=== PATIENT | female | born 1930 | race Hispanic/Latino ===

== ENCOUNTER 2017-03-04 11:23 | Emergency (ER) | payer MEDICARE ==
[2017-03-04 11:35] VITALS: BMI 29.2
[2017-03-04 11:50] VITALS: TEMP 97.6
[2017-03-04] MEDS ORDERED: Oxycodone/Acetaminophen 2.5/325 mg Tab PO STA (11:57)
--- NOTE | 2017-03-04 12:01 | ED PDOC ---
Arrival/HPI - General Chief Complaint: Lower Extremity Problem/Injury Time Seen by Provider: 03/04/17 11:30 Historian: Patient, Family, Caregiver EM Caveat: Dementia - History of Present Illness Narrative History of Present Illness (Text): 86 y/o female bed/wheelchair bound w/ pmhx of cva on aggrnox, htn, dm, hld, dementia presents bibems s/p accidental twist mechanism while transferring her from wheelchair to bed , now c/o mild acute on chronic right sided knee swelling and pain. Patient and [employer] MA[employer] at bedside denies any falls/syncopal events/ concomitant bodily traumatic injury/recent symptoms of infective foci/ denying ams/fevers/[id number]/cough/dysuria/cough or any other complaints at this time. PMD: Dr. Pawan Antunez Time/Duration: 24 hours Symptom Onset: Sudden Symptom Course: Unchanged Quality: Aching Severity Level: 6 Activities at Onset: Light Past Medical History - Provider Review Nursing Documentation Reviewed: Yes - Travel History Have you recently traveled outside [place] w/in the past 3 mons?: No - Past History Past History: Non-Contributing - Infectious Disease Hx of Infectious Diseases: None - Cardiac Hx Hypertension: Yes - Neurological Hx Dementia: Yes - Endocrine/Metabolic Hx Diabetes Mellitus Type 2: Yes - Musculoskeletal/Rheumatological Hx Arthritis: Yes - Psychiatric Hx Substance Use: No - Anesthesia Hx Anesthesia: No Family/Social History - Physician Review Nursing Documentation Reviewed: Yes Family/Social History: No Known Family HX Smoking Status: Never Smoked Hx Alcohol Use: Yes Frequency of alcohol use: Socially Hx Substance Use: No Allergies/Home Meds Allergies/Adverse Reactions: Allergies No Known Allergies Allergy (Verified 03/04/17 11:35) Review of Systems - Physician Review All systems were reviewed & negative as marked: Yes - Review of Systems Constitutional: Normal Eyes: Normal ENT: Normal Respiratory: Normal Cardiovascular: Normal Gastrointestinal: Normal Genitourinary Female: Normal Musculoskeletal: Other (aforementioned ) Skin: Normal Neurological: Normal Endocrine: Normal Hemo/Lymphatic: Normal Psychiatric: Normal Physical Exam Vital Signs Reviewed: Yes Vital Signs Temp Pulse Resp BP Pulse Ox 03/04/17 13:41 94 H 18 145/65 94 L 03/04/17 11:48 97.6 F 100 H 16 148/69 93 L Temperature: Afebrile Blood Pressure: Normal Pulse: Regular Respiratory Rate: Normal Appearance: Positive for: Well-Appearing, Non-Toxic, Comfortable Pain Distress: None Mental Status: Positive for: other (aox 2 to person and "hospital " ) - Systems Exam Head: Present: Atraumatic, Normocephalic Pupils: Present: PERRL Extroacular Muscles: Present: EOMI Conjunctiva: Present: Normal Mouth: Present: Moist Mucous Membranes Neck: Present: Normal Range of Motion Respiratory/Chest: Present: Clear to Auscultation, Good Air Exchange. No: Respiratory Distress, Accessory Muscle Use Cardiovascular: Present: Regular Rate and Rhythm, Normal S1, S2. No: Murmurs Abdomen: Present: Normal Bowel Sounds. No: Tenderness, Distention, Peritoneal Signs Back: Present: Normal Inspection Upper Extremity: Present: Normal Inspection. No: Cyanosis, Edema Lower Extremity: Present: Other (b/l knee crepitus on rom, + medial joint line ttp over rt knee, no relative ligamentous laxity (no varus/valgus/ant/post drawer sign (-) ). No: Edema Neurological: Present: GCS=15, CN II-XII Intact, Speech Normal Skin: Present: Warm, Dry, Normal Color. No: Rashes Psychiatric: Present: Alert, Oriented x 3, Normal Insight, Normal Concentration Medical Decision Making ED Course and Treatment: 03/04/17 12:05 Impression: An 86 year old female with chronic right knee pain and swelling. Differential Diagnosis included but are not limited to: right knee pain r/o fracture, dislocation Plan: -- Radiology right knee -- Percocet -- Reassess and disposition Progress Notes: Awaiting knee xray , pt more comfortable s/p rx admin. 03/04/17 14:44 Right Knee Radiographs Creator : Luis Enriquez MD FINDINGS: BONES: Normal. No fracture. JOINTS: There is joint space narrowing in the medial and lateral compartments JOINT EFFUSION: None. IMPRESSION: No acute findings. 03/04/17 15:07 Official read by radiologist is awaited. Pt pain controlled. Bulky napoles wrap was placed on knee. R.I.C.E. Treatment/pmd f/u +/- TO BE ADVISED. 03/04/17 15:08 Re-evaluation Time: 15:00 Reassessment Condition: Re-examined - RAD Interpretation Radiology Orders: 03/04/17 11:54 KNEE RIGHT 2 VIEWS (AP & LAT) [RAD] Stat - Medication Orders Current Medication Orders: Discontinued Medications Oxycodone/Acetaminophen (Percocet 2.5/325 Mg Tab) 1 tab PO STAT STA Stop: 03/04/17 11:58 Last Admin: 03/04/17 12:49 Dose: 1 tab - Scribe Statement The provider has reviewed the documentation as recorded by the Alexandr Gates Provider Scribe Attestation: All medical record entries made by the Scribe were at my direction and personally dictated by me. I have reviewed the chart and agree that the record accurately reflects my personal performance of the history, physical exam, medical decision making, and the department course for this patient. I have also personally directed, reviewed, and agree with the discharge instructions and disposition. Disposition/Present on Arrival - Present on Arrival Any Indicators Present on Arrival: No History of DVT/PE: No History of Uncontrolled Diabetes: No Urinary Catheter: No History of Decub. Ulcer: No History Surgical Site Infection Following: None - Disposition Have Diagnosis and Disposition been Completed?: Yes Diagnosis: Right knee sprain Disposition: HOME/ ROUTINE Disposition Time: 15:09 Patient Plan: Discharge Patient Problems: Current Active Problems Problem Status Onset Right knee sprain Acute Condition: GOOD Discharge Instructions (ExitCare): Knee Sprain (ED) Print Language: JORDANIAN Prescriptions: Acetaminophen [Tylenol 325mg tab] 650 mg PO Q6 PRN 10 Days #50 tab PRN Reason: knee pain Referrals: Pawan Antunez DO [Primary Care Provider] - Follow up with primary Forms: [employer] (Frisian)
--- NOTE | 2017-03-04 14:43 | RAD ---
PROCEDURE: Right Knee Radiographs. HISTORY: knee sprain mechanism yesterday,r/o frx COMPARISON: None. FINDINGS: BONES: Normal. No fracture. JOINTS: There is joint space narrowing in the medial and lateral compartments JOINT EFFUSION: None. OTHER FINDINGS: None. IMPRESSION: No acute findings
[2017-03-04 15:10] VITALS: O2SAT 95
[2017-03-04 16:48] VITALS: BP 160/82; PULSE 85; RESP 16
== END 2017-03-04 16:52 | disposition home or self-care (01) ==
LOC: ED 11:23
DX: S83.91XA Sprain of unspecified site of right knee, initial encounter (principal); X50.1XXA Overexertion from prolonged static or awkward postures, initial encounter; Y93.89 Activity, other specified; Y92.89 Other specified places as the place of occurrence of the external cause; Z99.3 Dependence on wheelchair